=== PATIENT | female | born 1960 | race Two or more races ===

== ENCOUNTER 2018-08-07 10:06 | Outpatient (CLI) | payer OTHER | END 2018-08-07 11:18 | disposition home or self-care (01) | LOC: MAMO-SONO 10:06 | DX: Z12.31 Encounter for screening mammogram for malignant neoplasm of breast (principal); N64.4 Mastodynia; N60.11 Diffuse cystic mastopathy of right breast; R10.2 Pelvic and perineal pain ==

== ENCOUNTER → 2018-08-07 10:39 | Outpatient (CLI) | payer OTHER | END | disposition home or self-care (01) | LOC: LAB 10:39 | DX: M81.0 Age-related osteoporosis without current pathological fracture (principal); K92.1 Melena; Z12.11 Encounter for screening for malignant neoplasm of colon; E03.8 Other specified hypothyroidism; D63.8 Anemia in other chronic diseases classified elsewhere; N30.90 Cystitis, unspecified without hematuria; E78.2 Mixed hyperlipidemia ==

== ENCOUNTER 2018-08-13 08:59 | Outpatient (CLI) | payer OTHER | END 2018-08-13 16:35 | disposition home or self-care (01) | LOC: LAB 08:59 | DX: M81.0 Age-related osteoporosis without current pathological fracture (principal); K92.1 Melena; Z12.11 Encounter for screening for malignant neoplasm of colon; E03.8 Other specified hypothyroidism; D63.8 Anemia in other chronic diseases classified elsewhere; N30.90 Cystitis, unspecified without hematuria; E78.2 Mixed hyperlipidemia; N92.1 Excessive and frequent menstruation with irregular cycle; N91.2 Amenorrhea, unspecified ==

== ENCOUNTER 2018-08-28 10:31 | Outpatient (CLI) | payer OTHER | END 2018-08-28 11:00 | disposition home or self-care (01) | LOC: RAD 10:31 | DX: R10.32 Left lower quadrant pain (principal) ==

== ENCOUNTER 2018-08-29 09:11 | Outpatient (CLI) | payer OTHER | END 2018-08-29 09:22 | disposition home or self-care (01) | LOC: SONOGRAMA 09:11 → MAMO-SONO 09:15 → SONOGRAMA 09:22 | DX: N84.0 Polyp of corpus uteri (principal) ==

== ENCOUNTER 2018-12-19 12:09 | Emergency (ER) | payer OTHER ==
[~2018-12-19] VITALS: Ht 160 cm; Wt 68.0 kg
[2018-12-19] MEDS ORDERED: ENALAPRIL MALEA25 GM MC (12:44)
== END 2018-12-19 21:52 | disposition home or self-care (01) ==
LOC: ER 12:09
DX: N39.0 Urinary tract infection, site not specified (principal); K57.30 Diverticulosis of large intestine without perforation or abscess without bleeding; I86.2 Pelvic varices

== ENCOUNTER 2019-12-16 08:52 | Outpatient (CLI) | payer OTHER ==
[~2019-12-16 08:52] MED LIST: ENALAPRIL MALEA25 GM MC
== END 2019-12-16 09:05 | disposition home or self-care (01) ==
LOC: SONOGRAMA 08:52
DX: I11.9 Hypertensive heart disease without heart failure (principal)